=== PATIENT | male | born 2000 ===

== ENCOUNTER 2018-11-30 19:08 | Emergency (ER) | payer MEDICAID ==
[2018-11-30 19:44] VITALS: BP 124/66; PULSE 65; RESP 20; TEMP 97.9; O2SAT 100
--- NOTE | 2018-11-30 20:11 | C.PDOC ---
History Of Present Illness 17 y/o male c/o right mnee pain and swelling after knee locked and fell off skateboard, now swollen and painful. Time Seen by Provider: 11/30/18 19:53 Chief Complaint (Nursing): Lower Extremity Problem/Injury History Per: Patient History/Exam Limitations: no limitations Onset/Duration Of Symptoms: Days Current Symptoms Are (Timing): Still Present Additional History Per: Patient Past Medical History Reviewed: Historical Data, Nursing Documentation, Vital Signs Vital Signs: Last Vital Signs Temp 97.9 F 11/30/18 19:34 Pulse 65 11/30/18 19:34 Resp 20 11/30/18 19:34 BP 124/66 11/30/18 19:34 Pulse Ox 100 11/30/18 19:34 - Medical History PMH: No Chronic Diseases Surgical History: No Surg Hx Family History: States: Unknown Family Hx - Social History Hx Tobacco Use: No Hx Alcohol Use: Yes Hx Substance Use: No - Immunization History Hx Tetanus Toxoid Vaccination: No Hx Influenza Vaccination: No Hx Pneumococcal Vaccination: No Review Of Systems Musculoskeletal: Positive for: Other (right knee pain ) Neurological: Negative for: Weakness, Numbness Physical Exam - Physical Exam Appears: Non-toxic, No Acute Distress Skin: Normal Color, Warm, Dry Extremity: Normal ROM, No Calf Tenderness, Capillary Refill (less than 2 seconds ), Other (swelling mostly to lateral aspect of right knee, and some to proximal aspect of right knee. knee feels bouncy, fluid-like. no fibula tenderness ) Neurological/Psych: Normal Speech, Normal Cognition ED Course And Treatment O2 Sat by Pulse Oximetry: 100 (on RA) Pulse Ox Interpretation: Normal Medical Decision Making Medical Decision Making: Progress: Right knee XR ordered and reviewed. pt with farzana acute fx on xray., has a kjjenniee leeve at home, adivsed to wear for compression and support. cold compress. nsaid. ortho f/uadvised not to skateboard Disposition Counseled Patient/Family Regarding: Diagnosis, Need For Followup, Rx Given - Disposition Referrals: Patrick James MD [Staff Provider] - Disposition: HOME/ ROUTINE Disposition Time: 21:28 Condition: GOOD Additional Instructions: Wear knee sleeve/brace. No skate boarding. Cold compresses. Aleve for pain. Follow up with orthopedist Dr Jacob. Instructions: Knee Sprain (DC), Swollen Joints (DC) Forms: [facility] ([employer]), General Discharge Instructions - Clinical Impression Clinical Impression: Right knee injury
--- NOTE | 2018-12-01 09:07 | RAD ---
Date of service: 11/30/2018 PROCEDURE: Right Knee Radiographs. HISTORY: lateral swelling,effusion. s/p fall COMPARISON: None. TECHNIQUE: 2 views obtained. FINDINGS: BONES: Normal. No fracture. JOINTS: Normal. No osteoarthritis. JOINT EFFUSION: Present OTHER FINDINGS: There is subcutaneous thickening mild increased density between the inferior patellar pole and anterior tibial tuberosity. IMPRESSION: No fracture or lytic lesion. Small effusion suggested Soft tissue changes as above.
== END 2018-11-30 21:34 | disposition home or self-care (01) ==
LOC: C.ER 19:08
DX: S89.91XA Unspecified injury of right lower leg, initial encounter (principal); V00.131A Fall from skateboard, initial encounter; Y93.51 Activity, roller skating (inline) and skateboarding